=== PATIENT | male | born 1945 | race Caucasian/White ===

== ENCOUNTER → 2016-10-29 | Outpatient (CLI) | payer OTHER | LOC: BHLMT 14:00 | PROVIDERS: ATTEND Internal Medicine Cardiovascular Disease | DX: I25.10 Atherosclerotic heart disease of native coronary artery without angina pectoris (principal) | CPT/HCPCS: 93306-PO ==

== ENCOUNTER 2017-01-25 16:02 | Emergency (ER) | payer OTHER, MEDICARE ==
[2017-01-25 16:30] VITALS: O2SAT 94
--- NOTE | 2017-01-25 17:10 | EDPHY ---
H & P Stated Complaint: FELL ONTO RIM OF WHEELBARRELINJURED LEFT RIBS Time Seen by Provider: 01/25/17 17:01 HPI/ROS: CHIEF COMPLAINT: Left lower rib pain HISTORY OF PRESENT ILLNESS: 71-year-old male arrives via private vehicle with his complaining of acute left lower rib pain after he sustained a mechanical fall, was pushing a wheelbarrow, tripped and impacted his left lower ribs against the wheelbarrow "knocked the wind out". Occurred shortly prior to arrival. He currently has reproducible pain with palpation and deep inspiration. History of anticoagulant use with Plavix secondary to cardiac stent history. He denies: Head injury, neck pain or injury, peripheral paresthesia, weakness, numbness, back pain, nausea, vomiting, straddle injury. This was mechanical incident a syncopal episode PRIMARY CARE PROVIDER: Testorri REVIEW OF SYSTEMS: A ten point review of systems was performed and is negative with the exception of the items mentioned in the HPI PAST MEDICAL/SURGICAL HISTORY: Cardiac stenting , CABG, on Plavix anticoagulant therapy SOCIAL HISTORY: . denies alcohol use at time of incident PHYSICAL EXAM 1) GENERAL: Well-developed, well-nourished, alert and oriented. Appears to be in no acute distress. Answering questions appropriately. 2) HEAD: Normocephalic, atraumatic 3) HEENT: Pupils equal, round, reactive to light bilaterally. Negative Horners. Nasopharynx, oropharynx, clear. No deformity or angulation of nose. No septal hematoma. No rhinorrhea. No oral trauma. Ears bilaterally with normal tympanic membranes. No raccoon eyes. No Michele sign. . 4) NECK: . Posterior cervical spine is nontender, no stepoff, no effusion. Full range of motion which does not elicit any midline cervical spine pain, no posterior midline tenderness, no step-off. 5) LUNGS: Clear to auscultation bilaterally, no wheezes, no rhonchi, no retractions. No obvious signs of trauma. No chest wall pain. No flaring, no grunting. Moving symmetrically. No crepitus. 6) HEART: Regular rate and rhythm, patient is tender to palpation left midclavicular line just inferior to the nipple with no crepitus, no ecchymosis. He is breathing comfortably speaking full sentences. 7) ABDOMEN: No guarding, no rebound, no focal tenderness, no peritoneal signs, no signs of trauma, no ecchymosis. Specific attention paid to the left upper quadrant and palpation of the anatomic region of the spleen. I palpated deeply into the left upper quadrant/splenic region I am unable to elicit any pain. 8) MUSCULOSKELETAL: Moving all extremities, no focal areas of tenderness, no obvious trauma. 9) BACK: No midline vertebral tenderness, no fluctuance, no step-off, no obvious trauma, no visual or palpable abnormality. 10) SKIN: No laceration. No abrasion DIFFERENTIAL DIAGNOSIS: [in no particular include but limited to pneumothorax, hemothorax, rib fracture, rib contusion, splenic contusion - Personal History Current Tetanus Diphtheria and Acellular Pertussis (TDAP): Yes Tetanus Vaccine Date: < 10 YEARS - Medical/Surgical History Hx Asthma: No Hx Chronic Respiratory Disease: No Hx Diabetes: No Hx Cardiac Disease: Yes Hx Renal Disease: No Hx Cirrhosis: No Hx Alcoholism: No Hx HIV/AIDS: No Hx Splenectomy or Spleen Trauma: No Other PMH: ID WITH CABG, SLEEP APNEA, HERNIA REPAIR, R HIP ARTHROPLASTY - Social History Smoking Status: Former smoker Constitutional: Initial Vital Signs Temperature (C) 36.8 C 01/25/17 16:25 Heart Rate 67 01/25/17 16:25 Respiratory Rate 16 01/25/17 16:25 Blood Pressure 157/83 H 01/25/17 16:25 O2 Sat (%) 94 01/25/17 16:25 O2 Delivery Mode Room Air Allergies/Adverse Reactions: codeine Allergy (Verified 01/25/17 16:32) Sulfa (Sulfonamide Antibiotics) Allergy (Verified 01/25/17 16:32) Home Medications: Medication Instructions Recorded ASPIRIN 01/25/17 CALCIUM 01/25/17 Cholestoff 01/25/17 Clopidogrel 01/25/17 GUAIFENESIN 01/25/17 Glucosamine Sulfate 01/25/17 Hydrocodone/APAP 5/325 [Huron 1 tab PO Q6 PRN #10 tab 01/25/17 5/325 (RX)] IBUPROFEN 01/25/17 Losartan Potassium 01/25/17 Metoprolol Succinate 01/25/17 Rosuvastatin Calcium 01/25/17 Tylenol 01/25/17 Vit D 01/25/17 Marielos 01/25/17 ED Images - Male Images Male Torso Head Front/Back: 1 - tender to palpation Medical Decision Making ED Course/Re-evaluation: The patient has been re-evaluated with serial examinations. He is on daily Plavix secondary to history of cardiac stenting. Today's incident with mechanical non syncopal episode. Had a lengthy discussion with the patient his who got location of his injury which is in the midclavicular line on the left side. Discussed possibility of splenic injury and the diagnostic of such. I think that acute splenic injury is less than likely in this patient at this time as he has absolutely no pain with palpation of the abdomen or with deep palpation in the anatomic location of the spleen. X-rays were obtained showing no pneumo or hemothorax. Patient was given an incentive spirometer. He feels comfortable being discharged.Care and management in consultation with secondary supervising physician Dr Cheema . Patient has a listed codeine allergy. He states that he is able to tolerate Vicodin and/or Percocet without adverse reaction Departure - Departure Disposition: Home, Routine, Self-Care Clinical Impression: Rib pain on left side Condition: Good Instructions: Rib Contusion (ED) Additional Instructions: Return to the emergency department if you develop shortness of breath, abdominal pain, nausea, vomiting, dizziness, lightheadedness, or any other symptoms that concern you. Referrals: Krzysztof Fields MD [Primary Care Provider] - 1-2 days without fail Prescriptions: Hydrocodone/APAP 5/325 [Huron 5/325 (RX)] 1 tab PO Q6 PRN #10 tab PRN Reason: Pain, Severe
[2017-01-25 18:20] VITALS: BP 152/74; PULSE 62; RESP 18; TEMP 97.7
== END 2017-01-25 18:18 | disposition home or self-care (01) ==
DX: S29.9XXA Unspecified injury of thorax, initial encounter (principal); I25.2 Old myocardial infarction; Z79.82 Long term (current) use of aspirin; Z95.1 Presence of aortocoronary bypass graft; Z95.5 Presence of coronary angioplasty implant and graft; Z87.891 Personal history of nicotine dependence; W01.198A Fall on same level from slipping, tripping and stumbling with subsequent striking against other object, initial encounter

== ENCOUNTER → 2017-09-22 | Outpatient (CLI) | payer OTHER, MEDICARE | LOC: BHLMT 15:30 | PROVIDERS: ATTEND Internal Medicine Cardiovascular Disease | DX: I25.10 Atherosclerotic heart disease of native coronary artery without angina pectoris (principal); I10 Essential (primary) hypertension; E78.5 Hyperlipidemia, unspecified; I25.5 Ischemic cardiomyopathy; Z95.1 Presence of aortocoronary bypass graft | CPT/HCPCS: 93005-PO ==

== ENCOUNTER → 2018-12-03 | Outpatient (CLI) | payer OTHER, MEDICARE | LOC: BHLMT 15:30 | PROVIDERS: ATTEND Internal Medicine Interventional Cardiology | DX: I25.10 Atherosclerotic heart disease of native coronary artery without angina pectoris (principal); I10 Essential (primary) hypertension | CPT/HCPCS: 93306-PO ==